=== PATIENT | female | born 1970 | race Two or more races ===

== ENCOUNTER 2020-12-30 06:10 | Day surgery (SDC) | payer OTHER ==
[2020-12-30] MEDS ORDERED: PERCOCET 5-3251 EACH PO (09:06)
[2020-12-30] MEDS ORDERED: RECTICARE30 GM TOP (09:07)
== END 2020-12-30 18:55 | disposition home or self-care (01) ==
LOC: CIR.AMB 06:10
PROVIDERS: ATTEND Surgery
DX: K64.8 Other hemorrhoids (principal); K64.4 Residual hemorrhoidal skin tags; Z20.822 Contact with and (suspected) exposure to COVID-19